=== PATIENT | female | born 1995 | race Caucasian/White ===

== ENCOUNTER 2024-09-10 11:03 | Outpatient (CLI) | payer OTHER, SELFPAY ==
--- NOTE | 2024-09-10 11:15 | CRLHL7_ITS ---
For Patients: As a result of the Cures Act, medical imaging exams and procedure reports are released immediately into your electronic medical record. You may view this report before your referring provider. If you have questions, please contact your health care provider. OB ULTRASOUND FIRST TRIMESTER INDICATION: Dating and viability. TECHNIQUE: Real time maciel scale imaging of the fetus was performed. Transvaginal. LMP: 07/05/2024. CHRIST by LMP: 04/11/2025. GA: 9 w, 4 d. Previous US: No. CRL: 2.6 cm. 9 w 3 d. CHRIST: 04/12/2025. FHR: 167 BPM. Gestational sac: 4.9 cm. Appears within normal limits. Yolk sac: 5.4 mm. Appears within normal limits. Right ovary: Within normal limits. 3.6 x 2.1 x 2.0 cm. CL. Left ovary: Within normal limits. 2.7 x 1.1 x 1.7 cm. IMPRESSION: 1. Single living intrauterine with sonographic gestational age measuring 9 weeks 3 days and sonographic due date 04/12/2025. 2. Subchorionic hemorrhage measures 1.1 x 1.3 x 0.5 cm. Vladislav Mina M.D. Diagnostic Radiologist [email or web address] SEVEN/nick romero/Dictated by: Vladislav Mina MD @ 09/10/2024 11:47:00 AM (Electronically Signed)
== END 2024-09-10 11:04 | disposition home or self-care (01) ==
LOC: US 11:04
PROVIDERS: PCP Family Medicine; Visit Provider Advanced Practice Midwife
DX: Z34.91 Encounter for supervision of normal pregnancy, unspecified, first trimester (principal); O20.9 Hemorrhage in early pregnancy, unspecified; Z3A.09 9 weeks gestation of pregnancy
CPT/HCPCS: 76817; 82565; 82570; 83021; 84156; 84443; 84450; 84460; 84520; 86592; 86703; 86704; 86706; 86762; 86787; 86803; 86850; 86900; 86901; 87086; 87340

== ENCOUNTER 2024-09-30 10:19 | Outpatient (CLI) | payer OTHER, SELFPAY | END 2024-09-30 10:20 | disposition home or self-care (01) | PROVIDERS: PCP Family Medicine; Visit Provider Advanced Practice Midwife | DX: Z34.81 Encounter for supervision of other normal pregnancy, first trimester (principal) | CPT/HCPCS: 82570; 84156 ==

== ENCOUNTER 2024-11-01 10:15 | Outpatient (CLI) | payer OTHER, SELFPAY | END 2024-11-01 10:16 | disposition home or self-care (01) | PROVIDERS: PCP Family Medicine; Visit Provider Advanced Practice Midwife | DX: Z34.82 Encounter for supervision of other normal pregnancy, second trimester (principal) | CPT/HCPCS: 81511 ==

== ENCOUNTER 2025-01-23 14:34 | Outpatient (CLI) | payer OTHER, SELFPAY | END 2025-01-23 14:35 | disposition home or self-care (01) | LOC: NFLDREF 14:36 | PROVIDERS: PCP Family Medicine; Visit Provider Advanced Practice Midwife | DX: Z34.83 Encounter for supervision of other normal pregnancy, third trimester (principal); Z67.11 Type A blood, Rh negative | CPT/HCPCS: 86592; 86850; J2791 ==

== ENCOUNTER 2025-02-05 13:35 | Outpatient (CLI) | payer OTHER, SELFPAY | END 2025-02-05 13:36 | disposition home or self-care (01) | LOC: NFLDREF 13:35 | PROVIDERS: PCP Family Medicine; Visit Provider Advanced Practice Midwife | DX: E03.9 Hypothyroidism, unspecified (principal) | CPT/HCPCS: 84443 ==

== ENCOUNTER 2025-03-04 16:05 | Outpatient (CLI) | payer OTHER, SELFPAY | END 2025-03-04 16:06 | disposition home or self-care (01) | PROVIDERS: PCP Family Medicine; Visit Provider Midwife | DX: Z34.93 Encounter for supervision of normal pregnancy, unspecified, third trimester (principal); Z86.2 Personal history of diseases of the blood and blood-forming organs and certain disorders involving the immune mechanism; Z3A.34 34 weeks gestation of pregnancy | CPT/HCPCS: 82565; 82570; 84156; 84450; 84460; 84520; 84550 ==

== ENCOUNTER 2025-03-18 13:55 | Outpatient (CLI) | payer OTHER, SELFPAY | END 2025-03-18 13:56 | disposition home or self-care (01) | LOC: NFLDREF 03-24 09:12 | PROVIDERS: PCP Family Medicine; Referring Provider Family Medicine; Visit Provider Midwife | DX: Z34.93 Encounter for supervision of normal pregnancy, unspecified, third trimester (principal); Z3A.36 36 weeks gestation of pregnancy | CPT/HCPCS: 87081; 87653 ==

== ENCOUNTER 2025-03-29 15:59 | Outpatient (CLI) | payer OTHER, SELFPAY ==
[2025-03-29] VITALS (10 sets, daily range): BP systolic 135–149; BP diastolic 84–97; PULSE 86–97; RESP 18; TEMP 36.7–36.8; O2SAT 98
[2025-03-29 16:37] LABS: Hematocrit 36.1 % (33.0-51.0); Hemoglobin* 12.3 gm/dL (12.0-16.0); Mean Corpuscular HGB Conc 34 gm/dL (32-36); Mean Corpuscular Hemoglobin 30 pg (26-34); Mean Corpuscular Volume 89 fL (80-100); Red Blood Count 4.06 m/uL (4.00-5.20); White Blood Count* 6.53 K/uL (4.50-11.00)
[2025-03-29 17:01] LABS: Blood Urea Nitrogen* 7 mg/dL (5-24); Creatinine* 0.5 mg/dL (0.5-1.5); Estimated Glomerular Filt Rate 129 ml/min
[2025-03-29 17:02] LABS: Alanine Aminotransferase* 16 U/L (4-35); Aspartate Amino Transferase* 27 U/L (12-35)
[2025-03-29 17:04] LABS: Slide Review Reflex No
[2025-03-29 17:17] LABS: Protein Creatinine Ratio Urine 0.53 (0-0.19)
--- NOTE | 2025-03-29 18:31 | P.OBT_ITS ---
History of Present Illness History of Present Illness Date Seen: 03/29/25 History of Present Illness: Yara is a 29 year old at 38.1 weeks gestation by LMP, CHRIST of 04/11/2025, presents with decreased movement and then was noted to have elevated blood pressures today. Since arrival to triage she is now feeling movement and NST is reactive Category 1. She has a history of gestational hypertension and gestational thrombocytopenia with previous pregnancies. Her platelets were found to be 135 on 02/05/25, most recent platelet level prior to this visit was 98 on 03/14/25. Today platelets are 79. Her blood pressures here are running 140/90's, most recent 144/84, preeclampsia labs were done and she has a protein creatinine ratio of 0.53 which meets criteria for preeclampsia. In addition she has listed allergies to dexamethasone, fentanyl, midazolam and propofol from when her wisdom teeth were removed at around age 16. She reports her throat was closing and she had difficulty breathing while in recovery after that procedure. Discussed with the OB bonding molder who feels it would be safer to have her transfer to a larger facility with ICU care and larger blood supply available. Patient would like to transfer to [place] as this is closer to her home. Dr. Sheppard is accepting physician, at [facility] [place]. Baby moving naturally: Yes Bleeding: No Contractions: Yes Leaking fluid: No Discharge: No Heartburn: No Back pain: No Meds Home Medications and Allergies Home Medications ?Medication ?Instructions ?Recorded ?Confirmed ?Type docosahexaenoic acid 200 mg mg PO 09/10/24 03/26/25 Hi story capsule ( DHA) onabotulinumtoxinA 100 unit 5 unit IM ONCE 09/10/24 History solution for injection (Botox) aspirin 81 mg chewable tablet 81 mg PO QDAY 11/28/24 0 03/29/25 History famotidine 40 mg tablet (Pepcid) 40 mg PO QDAY 5 03/29/25 History Allergies Allergy/AdvReac Type Severity Reaction Status Date / Time dexamethasone Allergy Severe Verified 03/29/25 16:23 fentanyl Allergy Severe Verified 03/29/25 16:23 midazolam Allergy Severe Verified 03/29/25 16:23 propofol Allergy Severe Verified 03/29/25 16:23 [facility] Medical History Hypothyroid ?E03.9 - Hypothyroidism, unspecified (ICD-10) History of decreased platelet count ?Z86.2 - Personal history of diseases of the blood and blood-forming organs and certain disorders involving the immune mechanism (ICD-10) depression ?F53.0 - depression (ICD-10) History of gestational hypertension ?Z87.59 - Personal history of other complications of , childbirth and the puerperium (ICD-10) Surgical History History of vacuum extraction assisted delivery ?Z87.59 - Personal history of other complications of , childbirth and the puerperium (ICD-10) [place] teeth extracted ?K08.409 - Partial loss of teeth, unspecified cause, unspecified class (ICD- 10) Family History Mother Breast cancer Ulcerative colitis Fibromyalgia Migraine Sister Rheumatoid arthritis Maternal Grandmother Fibromyalgia Giant cell arteritis Alzheimers disease Family/Other Дмитрий thyroiditis Maternal Grandfather Vitiligo Social History Narrative: SOCIAL Education: bachelors Work: stay at home mom, farm Partner: Nadir - barrios Lives with: and kids Pets: 3 dogs, occasionally cats in the house, changes litter box Abuse: Denies past/present Special Diet: Denies Ok with a blood transfusion: yes Culture or tenriism beliefs: denies RISK FACTORS Exercise Times/wk: not currently formal exercise Depression/Anxiety: PP after both-sertraline KATELIN: 8 PHQ 9: 2 Seat Belt Use: Routinely Smoking: Denies past/present Alcohol/day: Denies while Caffeine: daily Drug Use: Denies past/present Chicken Pox: immunized MRSA: Denies What is your current living situation?: I presently have a place to live Problems where you live: no known problems In the past 12 months, utilities in danger of being shut off: no In past 12 months, lack of transportation kept you from medical appts, meetings, work, or getting things needed for daily living: no In the past 12 mos, have been you worried that your food would run out before you had money to buy more?: never true In the past 12 mos, the food you bought just didn't last and you didn't have money to buy more?: never true Smoking Status: Never smoker How often does anyone, including family, friends and others, physically hurt you : never How often does anyone, including family, friends and others, insult or talk down to you: never How often does anyone, including family, friends and others, threaten you with harm: never How often does anyone, including family, friends and others, scream or curse at you: never History History 4 Elective abortions Para 2 Spontaneous abortions 1 Hx # Term Pregnancies Ectopic pregnancies Hx # Pregnancies Multiple births Number of Living Children 0 Past Pregnancies Del. Date GA/Weeks Outcome Route wt Inf Gender Labor Lgth Anesthesia Location Provider Compli 01/30/20 37 live - full term vaginal delivery 7 lb 3 oz Male 8.5 hrs [place] gestational hypertension 06/27/22 38 live - full term 7 lb 15 oz Female 7hrs [place] gestational hypertension Delivery Date: 01/30/20 Last Updated by: Ivy Mina CNM low platelets and high BP without PreE diagnosis OB - H&P: Exam Physical Exam Vital signs: Temp Pulse BP Pulse Ox 98.1 F 97 144/84 H 98 03/29/25 16:10 03/29/25 18:26 03/29/25 18:26 03/29/25 16:09 Narrative: VSS? General Appearance:? Alert,?appropriate appearance?for age. No acute distress? HEENT Exam:? Grossly?normal.? Neck / Thyroid Exam:? Supple? Chest/Respiratory Exam: Normal respiratory effort, symmetrical chest wall rise. Clear to auscultation.? Cardiovascular Exam: Regular rate and rhythm. S1, S2, no murmur, click, gallop, or rubs.? Gastrointestinal Exam: non-tender,? Gravid??? Musculoskeletal Exam: Back is straight and non-tender, full ROM of upper and lower extremities.? Skin: no rash or abnormalities? Neurologic Exam: Normal gait and speech, no tremor.? Psychiatric Exam: Alert and oriented, appropriate affect.??? Cervix: deferred patient is not jeff regularly Vertex by Thomas's Constitutional Constitutional: no acute distress Routine HEENT Exam Head: Present atraumatic and normal inspection Detailed Labor and Delivery Exam Contraction frequency (min): 7 Contraction duration (sec): 60 Tachysystole: No Contraction intensity: Mild Fetus (Single) Amniotic Membrane Status: intact Heart Rate Baseline: 140 Monitor Accelerations: Present Monitor Decelerations: None Jail Variability: Moderate (6-25) Results Labs Laboratory Tests 03/29/25 03/29/25 Range/Units 16:45 16:29 WBC 6.53 (4.50-11.00) K/uL RBC 4.06 (4.00-5.20) m/uL Hgb 12.3 (12.0-16.0) gm/dL Hct 36.1 (33.0-51.0) % MCV 89 (80-100) fL MCH 30 (26-34) pg MCHC 34 (32-36) gm/dL Plt Count 79 L (140-440) K/uL BUN 7 (5-24) mg/dL Creatinine 0.5 (0.5-1.5) mg/dL Estimated GFR 129 ml/min AST 27 (12-35) U/L ALT 16 (4-35) U/L Urine Creatinine 32.0 mg/dL Protein/Creatinin Ratio 0.53 H (0-0.19) Urine Total Protein 17 mg/dL Assessment and Plan Assessment and plan (1) Gestational thrombocytopenia: Status: Acute (2) Preeclampsia: Status: Acute Plan at 38.1 weeks with progressive gestational thrombocytopenia and new onset of preeclampsia. Multiple drug allergies- dexamethasone, fentanyl, midazolam, propofol Plan Tranfer of care to larger facility with ICU and larger blood bank for patient safety
--- NOTE | 2025-03-29 19:06 | PC.OBNST ---
NST Note NST Note Start: 03/29/25 16:03 Freq: ONCE Status: Active Protocol: Document 03/29/25 19:05 [facility] (Rec: 03/29/25 19:05 [facility] Desktop) NST Note 4 Para (# of births) 2 EDC 04/11/25 Gestational Age In 38 Weeks & 1 Days Weeks & Days High Risk Factors High Blood Pressure - Gestational Patient Presented Decreased movement with Complaint(s) of Reactive Yes Appropriate for Yes Gestational Age MOISES Garcia RN Date 03/29/25 Reactive Yes Appropriate for Yes Gestational Age MOISES Marques RN Date 03/29/25 OB NST charge Yes Complete NST Note Yes via Write Note The provider's electronic signature indicates the NST is reactive/appropriate for gestational age. *Note to provider: If an addendum is required, open the patient's chart and click on the note under the Nurse/Allied Health tab.
== END 2025-03-29 19:04 | disposition short-term general hospital (02) ==
LOC: OB OUT 15:59 → OB 16:01
PROVIDERS: PCP Family Medicine; Visit Provider Advanced Practice Midwife
DX: O13.3 Gestational [pregnancy-induced] hypertension without significant proteinuria, third trimester (principal); O36.8130 Decreased fetal movements, third trimester, not applicable or unspecified; Z3A.38 38 weeks gestation of pregnancy
CPT/HCPCS: 36415; 59025; 82565; 82570; 84156; 84450; 84460; 84520; 85027; G0463

== ENCOUNTER 2025-03-29 19:02 | Outpatient (CLI) | payer OTHER, SELFPAY | END 2025-03-29 19:03 | disposition home or self-care (01) | LOC: AMB 04-02 11:06 | PROVIDERS: PCP Family Medicine; Visit Provider Emergency Medicine Emergency Medical Services | DX: O14.93 Unspecified pre-eclampsia, third trimester (principal); O99.113 Other diseases of the blood and blood-forming organs and certain disorders involving the immune mechanism complicating pregnancy, third trimester; Z3A.38 38 weeks gestation of pregnancy | CPT/HCPCS: A0425; A0429 ==